=== PATIENT | male | born 1985 ===

== ENCOUNTER → 2018-01-02 | Day surgery (SDC) | payer SELFPAY ==
[2017-08-28 13:57] VITALS: BMI 27.1
[~2018-01-02] MED LIST: Gentamicin 80 mg/2mL Inj. ONE; Hyaluronidase Human, Recombi 150 U/ML VIAL ONE; Lactated Ringer's 500 ML IV ONE; Lidocaine 2% MPF (5 ml) Inj ONE; Lidocaine/Epinephrine 1% 1:100000 10 ML IJ ONE; MethylPREDNISolone 40 mg Vial ONE; Midazolam 2 MG/2 ML VIAL ONE; Phenylephrine 2.5% Opht Soln OD SCH; Propofol 10 mg/ml Inj (20 ML) ONE; Tetracaine 0.5% Ophth (OR ONLY) ONE; Tobramycin/Dexamethasone OPHT OINT ONE
[2018-01-02 11:03] VITALS: O2SAT 100
[2018-01-02 12:15] VITALS: BP 110/68; PULSE 69; RESP 17; TEMP 98.1
--- NOTE | 2018-01-02 21:31 | OP ---
PROCEDURE DATE: 01/02/2018 PREOPERATIVE DIAGNOSIS: Peripheral pterygium, right eye. POSTOPERATIVE DIAGNOSIS: Peripheral pterygium, right eye. PROCEDURE: Pterygium excision with autograft. SURGEON: Kenny Hadley MD ANESTHESIA: Retrobulbar block and sedation COMPLICATIONS: None. ESTIMATED BLOOD LOSS: 0.5 mL. DESCRIPTION OF PROCEDURE: The patient was brought to the operating room and properly identified. Anesthesia staff gave IV sedation. The patient was then prepped and draped in the usual sterile fashion. Retrobulbar block was given to the right eye. The pterygium was injected with lidocaine with epinephrine. Blane scissors and 0.12 were used to remove the pterygium. A wilfred bhumika was used to smooth out the corneal portion. Hemostasis was maintained with cautery. Once this was complete, mitomycin was placed on the bare sclera for one and a half minutes and then washed with three large syringes of BSS. Once that was complete, an autograft was taken from the superior conjunctiva. It was glued into place using Tisseel glue. Subconjunctival antibiotics and steroids were then given. The eye was covered by a soft patch and shield. The patient was returned to the recovery area in stable condition. Kenny Hadley MD
== END | disposition home or self-care (01) ==
LOC: C.SDS 08:42
PROVIDERS: ATTEND Ophthalmology
DX: H11.051 Peripheral pterygium, progressive, right eye (principal)
CPT/HCPCS: 65426; 88304; J1580; J2250; J2704; J2920; J3470; J7120